=== PATIENT | male | born 1990 | race Two or more races ===

== ENCOUNTER 2018-10-11 07:57 | Emergency (ER) | payer BC, OTHER ==
[~2018-10-11 07:57] MED LIST: AZIT-9 PO; CHOL378P6 PO; DIC10 PO; HYDR-2946 PO; HYDR-3250 GT; IBUP-1618 PO; KET10 PO; NO RTN MEDS; PER PO
--- NOTE | 2018-10-11 08:03 | ER Report ---
History and Physical Time Seen By MD: 08:03 HPI/ROS CHIEF COMPLAINT: Stomach pain HISTORY OF PRESENT ILLNESS: Patient is a 28-year-old male who is status post a cholecystectomy 2011 and has since that time been having episodic epigastric abdominal pain. Currently the patient does not have any pain she denies nausea vomiting or diarrhea at this time. But states that at 6 AM he woke with crampy abdominal pain in the upper part of the abdomen that was severe in nature. Symptoms spontaneously resolved prior to arrival to the emergency department this morning. Patient states that this problem has been present since his gallbladder is been taken out he does follow with Dr. Hart. His operating surgeon has since moved away from the area so he has not followed up with him. He denies any relation to meals but states pain is worse when he does not eat. He denies fevers or chills denies chest pain or shortness of breath. REVIEW OF SYSTEMS: Constitutional: No fever, no chills. Eyes: No discharge. ENT: No sore throat. Cardiovascular: No chest pain, no palpitations. Respiratory: No cough, no shortness of breath. Gastrointestinal: Epigastric abdominal pain, no nausea or vomiting. Genitourinary: No hematuria. Musculoskeletal: No back pain. Skin: No rashes. Neurological: No headache. Allergies: Coded Allergies: No Known Drug Allergies (Verified , 11/24/15) Home Meds Active Scripts Dicyclomine Hcl (DICYCLOMINE HCL) 20 Mg Tablet, 20 MG PO QID for ab pain, #20 TAB 0 Refills Prov:DONG PINEDO MD 10/11/18 Reported Medications Azithromycin 250 Mg Tab (AZITHROMYCIN 250 MG TAB) 250 Mg Tablet 10/11/18 Amitriptyline Hcl (AMITRIPTYLINE HCL) 10 Mg Tablet, 3-4XD 10/11/18 Discontinued Reported Medications Cholestyramine (With Sugar) (CHOLESTYRAMINE POWDER) 378 Gm Powder, 378 GM PO QDAY 11/24/15 Past Medical/Surgical History Past medical history for Valentin's palsy, history of cholecystectomy in 2011. Hx Smoking: No Smoking Status: Former Smoker Exposure to Second Hand Smoke?: No Hx Substance Use Disorder: No Hx Alcohol Use: Yes (RARE) Constitutional Vital Sign - Last 24 Hours 3/12/19 3/12/19 3/12/19 3/12/19 07:57 08:02 08:04 08:12 Temp 98.5 Pulse ??? 109 108 Resp 16 B/P (MAP) 154/102 154/102 (119) Pulse Ox 91 94 O2 Delivery Room Air 10/11/18 10/11/18 10/11/18 10/11/18 08:27 08:30 08:42 08:57 Pulse 104 106 ??? B/P (MAP) 129/82 (98) Pulse Ox 92 94 10/11/18 10/11/18 10/11/18 10/11/18 09:00 09:11 09:12 09:27 Pulse 102 91 B/P (MAP) 134/103 (113) 138/91 (107) Pulse Ox 88 92 10/11/18 10/11/18 10/11/18 10/11/18 09:30 09:42 09:47 10:00 Pulse 90 87 B/P (MAP) 124/78 (93) 126/87 (100) Pulse Ox 91 90 10/11/18 10/11/18 10/11/18 10/11/18 10:02 10:17 10:32 10:47 Pulse 90 93 ? Pulse Ox 87 90 94 10/11/18 10/11/18 10/11/18 10/11/18 11:00 11:02 11:17 11:30 Pulse ? B/P (MAP) ???/??? (1665) ???/??? (1665) 10/11/18 10/11/18 10/11/18 10/11/18 11:35 11:50 12:00 12:05 Pulse ? B/P (MAP) ???/??? (1665) 10/11/18 10/11/18 10/11/18 10/11/18 12:17 12:20 12:35 12:50 Pulse 87 86 86 B/P (MAP) 123/70 (87) Pulse Ox 90 89 91 10/11/18 10/11/18 13:05 13:20 Pulse 86 83 Pulse Ox 89 91 Physical Exam General/Constitutional: Patient is awake, alert, nontoxic and in no acute respiratory distress. Head: Normocephalic and atraumatic. Eyes: Conjunctival clear, Sclera are clear and anicteric. Ears:External canals are clear. Tympanic membranes are clear with normal landmarks and light reflex. Nares: No rhinorrhea or bleeding. Turbinates are pink and moist. Oropharyngeal: Mucous membranes are moist. Neck: Supple, no adenopathy. Cardiovascular: Heart is regular rate and rhythm without audible murmurs, rubs or gallops. Pulmonary: Lungs are clear to auscultation bilaterally. There are no wheezes, rales, or rhonchi. Chest rise is symmetrical Abdomen: Soft, nontender, no guarding or peritoneal signs. Extremities: No gross deformities, No peripheral cyanosis. Able to move all 4 extremities. Neuro: Alert and oriented X3, Skin: No rashes, skin is warm dry and well perfused. Medical Decision Making Data Points Result Diagram: 10/11/18 0812 10/11/18 0812 Laboratory Hematology Test 10/11/18 08:12 Red Blood Count 5.76 M/uL (4.00-5.60) Mean Corpuscular Volume 85.2 fL (80.0-96.0) Mean Corpuscular Hemoglobin 29.3 pg (26.0-33.0) Mean Corpuscular Hemoglobin Concent 34.3 g/dL (32.0-36.0) Red Cell Distribution Width 13.0 % (11.5-14.5) Mean Platelet Volume 9.6 fL (7.2-11.1) Neutrophils (%) (Auto) 76.0 % (39.4-72.5) Lymphocytes (%) (Auto) 13.4 % (17.6-49.6) Monocytes (%) (Auto) 8.9 % (4.1-12.4) Eosinophils (%) (Auto) 1.0 % (0.4-6.7) Basophils (%) (Auto) 0.7 % (0.3-1.4) Nucleated RBC Relative Count (auto) 0.0 /100WBC Neutrophils # (Auto) 9.8 K/uL (2.0-7.4) Lymphocytes # (Auto) 1.7 K/uL (1.3-3.6) Monocytes # (Auto) 1.1 K/uL (0.3-1.0) Eosinophils # (Auto) 0.1 K/uL (0.0-0.5) Basophils # (Auto) 0.1 K/uL (0.0-0.1) Nucleated RBC Absolute Count (auto) 0.00 K/uL Sodium Level 141 mmol/L (137-145) Potassium Level 4.0 mmol/L (3.5-5.0) Chloride Level 108 mmol/L (98-107) Carbon Dioxide Level 23 mmol/L (22-30) Blood Urea Nitrogen 16 mg/dl (9-21) Creatinine 1.20 mg/dl (0.66-1.25) Glomerular Filtration Rate Calc > 60.0 Random Glucose 118 mg/dl (75-110) Calcium Level 9.2 mg/dl (8.4-10.2) Total Bilirubin 1.8 mg/dl (0.2-1.3) Aspartate Amino Transf (AST/SGOT) 111 U/L (0-35) Alanine Aminotransferase (ALT/SGPT) 67 U/L (0-56) Alkaline Phosphatase 94 U/L (0-126) Total Protein 8.3 g/dl (6.3-8.2) Albumin 4.4 g/dl (3.5-5.0) Lipase 352 U/L (23-300) Helicobacter pylori IgG Antibody Negative (NEGATIVE) Chemistry Test 10/11/18 08:12 White Blood Count 12.8 k/uL (4.5-11.0) Red Blood Count 5.76 M/uL (4.00-5.60) Hemoglobin 16.9 g/dL (14.0-18.0) Hematocrit 49.1 % (42.0-52.0) Mean Corpuscular Volume 85.2 fL (80.0-96.0) Mean Corpuscular Hemoglobin 29.3 pg (26.0-33.0) Mean Corpuscular Hemoglobin Concent 34.3 g/dL (32.0-36.0) Red Cell Distribution Width 13.0 % (11.5-14.5) Platelet Count 219 K/uL (150-450) Mean Platelet Volume 9.6 fL (7.2-11.1) Neutrophils (%) (Auto) 76.0 % (39.4-72.5) Lymphocytes (%) (Auto) 13.4 % (17.6-49.6) Monocytes (%) (Auto) 8.9 % (4.1-12.4) Eosinophils (%) (Auto) 1.0 % (0.4-6.7) Basophils (%) (Auto) 0.7 % (0.3-1.4) Nucleated RBC Relative Count (auto) 0.0 /100WBC Neutrophils # (Auto) 9.8 K/uL (2.0-7.4) Lymphocytes # (Auto) 1.7 K/uL (1.3-3.6) Monocytes # (Auto) 1.1 K/uL (0.3-1.0) Eosinophils # (Auto) 0.1 K/uL (0.0-0.5) Basophils # (Auto) 0.1 K/uL (0.0-0.1) Nucleated RBC Absolute Count (auto) 0.00 K/uL Glomerular Filtration Rate Calc > 60.0 Calcium Level 9.2 mg/dl (8.4-10.2) Total Bilirubin 1.8 mg/dl (0.2-1.3) Aspartate Amino Transf (AST/SGOT) 111 U/L (0-35) Alanine Aminotransferase (ALT/SGPT) 67 U/L (0-56) Alkaline Phosphatase 94 U/L (0-126) Total Protein 8.3 g/dl (6.3-8.2) Albumin 4.4 g/dl (3.5-5.0) Lipase 352 U/L (23-300) Helicobacter pylori IgG Antibody Negative (NEGATIVE) EKG/Imaging Imaging PATIENT NAME: Robin Ramirez : 1990 MR: [id number] V: [id number] EXAM DATE: ORDERING PHYSICIAN: DONG PINEDO TECHNOLOGIST: Location: [facility] [place] Patient: Robin Ramirez : 1990 Visit/Account:[id number] Date of Sevice: 10/11/2018 CT ABDOMEN PELVIS W/ CON HISTORY:epigastric pain TECHNIQUE: CT abdomen and pelvis with intravenous contrast. Contiguous axial images of the abdomen and pelvis was performed from the lung bases to the symphysis pubis. One of the following dose optimization techniques was utilized in the performance of this exam: Automated exposure control; adjustment of the mA and/or kV according to the patient's size; or use of an iterative reconstruction technique. Specific details can be referenced in the facility's radiology CT exam operational policy. CONTRAST: 75 cc of Isovue-370 COMPARISON: None. FINDINGS: Visualized lung bases: Negative. Hepatobiliary: Gallbladder is absent. Bile ducts are decompressed Spleen: Negative. Adrenals: Negative. Kidneys/: Negative. Pancreas: Negative. GI: The appendix is normal. No evidence for bowel obstruction or focal inflammation. Stomach is filled with food and fluid. Vessels/spaces/nodes: Negative. Bones/soft tissues: Negative. IMPRESSION: 1. No acute pathology in the abdomen or pelvis. The appendix is visualized and is normal. Report Dictated By: Ganga Méndez MD at 10/11/2018 9:08 AM Report E-Signed By: Ganga Méndez MD at 10/11/2018 9:13 AM WSN:[id number] ED Course/Re-evaluation ED Course Plan at this time will be to perform abdominal workup including CBC CMP and lipase. We'll screen for H. pylori. We'll also perform a contrast enhanced CT scan of the abdomen and pelvis. Currently patient is symptom-free. 10/11/2018 9:33:25 am EKG skin normal however patient does have slight e levation of bilirubin and transaminases. We'll proceed with MRCP at this time. Decision to Disposition Date: Oct 11, 2018 Decision to Disposition Time: 13:52 Depart Departure Latest Vital Signs Vital Signs Date Time Temp Pulse Resp B/P (MAP) Pulse Ox O2 Delivery O2 Flow Rate FiO2 10/11/18 13:20 83 91 10/11/18 12:17 123/70 (87) 10/11/18 08:02 98.5 16 Room Air Impression: Primary Impression: Biliary colic Additional Impression: Transaminitis Condition: Improved Disposition: HOME OR SELF-CARE Referrals: SHARITA CIFUENTES MD Make a follow up appointment for further work up of you abdominal pain and elevated liver enzymes New Scripts Dicyclomine Hcl (DICYCLOMINE HCL) 20 Mg Tablet 20 MG PO QID for ab pain, #20 TAB 0 Refills Prov: DONG PINEDO MD 10/11/18 Departure Forms: ER Transition Record, Medications Reconciliation, Off Work/School Form, School or Work Release?: Work Number of days to be released: 1 Patient Portal Information Patient Instructions: Biliary Colic (ED) Problem Qualifiers DONG PINEDO MD Oct 11, 2018 08:03
[2018-10-11] MEDS ORDERED: AZIT-18 (08:16)
[2018-10-11] MEDS ORDERED: AMIT-104 (08:16)
[2018-10-11 08:44] LABS: PLATELET COUNT, AUTOMATED 219 K/uL (150-450)
[2018-10-11] MEDS ORDERED: IOPAMIDOL 76% 100 ML INFUS BTL 100 ML ONE (08:49)
--- NOTE | 2018-10-11 09:17 | RADIOLOGY IMAGING REPORT ---
FACILITY: [facility] - [place] PATIENT NAME: Robni Ramirez : 1990 MR: [id number] V: [id number] EXAM DATE: ORDERING PHYSICIAN: DONG PINEDO TECHNOLOGIST: Location: [facility] Patient: Robin Ramirez : 1990 Visit/Account:[id number] Date of Sevice: 10/11/2018 CT ABDOMEN PELVIS W/ CON HISTORY:epigastric pain TECHNIQUE: CT abdomen and pelvis with intravenous contrast. Contiguous axial images of the abdomen and pelvis was performed from the lung bases to the symphysis pubis. One of the following dose optimization techniques was utilized in the performance of this exam: Autom ated exposure control; adjustment of the mA and/or kV according to the patient's size; or use of an i terative reconstruction technique. Specific details can be referenced in the facility's radiology C T exam operational policy. CONTRAST: 75 cc of Isovue-370 COMPARISON: None. FINDINGS: Visualized lung bases: Negative. Hepatobiliary: Gallbladder is absent. Bile ducts are decompressed Spleen: Negative. Adrenals: Negative. Kidneys/: Negative. Pancreas: Negative. GI: The appendix is normal. No evidence for bowel obstruction or focal inflammation. Stomach is fill ed with food and fluid. Vessels/spaces/nodes: Negative. Bones/soft tissues: Negative. IMPRESSION: 1. No acute pathology in the abdomen or pelvis. The appendix is visualized and is normal. Report Dictated By: Ganga Méndez MD at 10/11/2018 9:08 AM Report E-Signed By: Ganga Méndez MD at 10/11/2018 9:13 AM WSN:[id number]
[2018-10-11 12:17] VITALS: BP 123/70
--- NOTE | 2018-10-11 13:38 | RADIOLOGY IMAGING REPORT ---
FACILITY: [facility] - [place] PATIENT NAME: Robin Ramirez : 1990 MR: [id number] V: [id number] EXAM DATE: ORDERING PHYSICIAN: DONG PINEDO TECHNOLOGIST: Location: [facility] - [place] Patient: Robin Ramirez : 1990 Visit/Account:[id number] Date of Sevice: 10/11/2018 MR ABDOMEN MRCP W/O CONTRAST HISTORY: elevated lft/ lipase TECHNIQUE: Multiplanar multisequence magnetic resonance imaging of the abdomen without intravenous c ontrast including magnetic resonance cholangiopancreatography (MRCP). CONTRAST: None. COMPARISON: CT abdomen pelvis performed today FINDINGS: Visualized lung bases: Grossly unremarkable. Liver: Negative. Gallbladder: Surgically removed Bile ducts: Common bile duct is minimally dilated at 5.5 mm which may simply be related to prior cho lecystectomy changes Spleen: Negative. Adrenal glands: Negative. Pancreas: Negative. Kidneys: Negative. Vessels/spaces/nodes: No bulky adenopathy or ascites. Visualized GI: Grossly unremarkable. Bones/soft tissues: Unremarkable. IMPRESSION: Common bile duct is minimally dilated at 5.5 mm which may simply be related to prior cholecystectomy changes. Otherwise unremarkable MRCP Report Dictated By: Sara Fang MD at 10/11/2018 1:23 PM Report E-Signed By: Sara Fang MD at 10/11/2018 1:34 PM WSN:[id number]
[2018-10-11] MEDS ORDERED: DICY20TA70 PO (13:53)
== END 2018-10-11 13:06 | disposition home or self-care (01) ==
LOC: ER 08:13
DX: K80.50 Calculus of bile duct without cholangitis or cholecystitis without obstruction (principal); R74.0 Nonspecific elevation of levels of transaminase and lactic acid dehydrogenase [LDH]
CPT/HCPCS: 74177; 74181; 83690; 85025; 86677; 99284; Q9967; 82040; 82247; 82310; 82374; 82435; 82565; 82947; 84075; 84132; 84155; 84295; 84450; 84460; 84520

== ENCOUNTER → 2018-11-23 | Outpatient (CLI) | payer BC ==
[~2018-11-23] MED LIST changes: +AMIT-104; +AZIT-18; +DICY20TA70 PO; +PANT40TA65 PO
== END ==
LOC: LAB 15:22
PROVIDERS: ATTEND Surgery
DX: K80.50 Calculus of bile duct without cholangitis or cholecystitis without obstruction (principal); R10.9 Unspecified abdominal pain
CPT/HCPCS: 36415; 82040; 82247; 82310; 82374; 82435; 82565; 82947; 83690; 84075; 84132; 84155; 84295; 84450; 84460; 84520

== ENCOUNTER 2018-12-14 10:09 | Emergency (ER) | payer BC ==
[2018-12-14] MEDS ORDERED: ELUX75TA PO (10:23)
--- NOTE | 2018-12-14 10:40 | ER Report ---
History and Physical Time Seen By MD: 10:30 Hx. of Stated Complaint: SUDDEN ONSET OF UPPER ABDOMINAL PAIN. TOOK DICYCLOMINE AND REPORTS IMPROVEMENT. DENIES N/V/D HPI/ROS CHIEF COMPLAINT: Epigastric pain HISTORY OF PRESENT ILLNESS: Per 8-year-old male status post Tana gallbladder removal comes emergency Department today with complaint of epigastric discomfort is been having this pain intermittently comes and goes seen by general surgery put on a proton pump inhibitor pain is been persistent worse today than it's been the last couple days no right upper quadrant no midepigastric pain patient's had a negative CT scan I spoke general surgery was requesting a repeat CT scan Baseline labs at this abnormalities to consult if not pertinent an outpatient EGD patient describes the pain is dull aching and burning sensation in his epigastrium without radiation no loosening relieving or alleviating factors no additional complaints noted REVIEW OF SYSTEMS: Respiratory: No cough, no dyspnea. Cardiovascular: No chest pain, no palpitations. Gastrointestinal: No vomiting, has abdominal pain. Musculoskeletal: No back pain. Remainder of the 14 system rev: Yes Allergies: Coded Allergies: No Known Drug Allergies (Verified , 11/24/15) Home Meds Active Scripts Pantoprazole Sodium (PANTOPRAZOLE SODIUM) 40 Mg Tablet.dr, 40 MG PO QDAY for 30 Days, #30 TAB.SR 2 Refills Prov:NELL CASTANO 11/23/18 Dicyclomine Hcl (DICYCLOMINE HCL) 20 Mg Tablet, 20 MG PO QID for ab pain, #20 TAB 0 Refills Prov:DONG PINEDO MD 10/11/18 Reported Medications Eluxadoline (Viberzi) 75 Mg Tablet, 1 TAB PO DAILY 12/14/18 Discontinued Reported Medications Azithromycin 250 Mg Tab (AZITHROMYCIN 250 MG TAB) 250 Mg Tablet 10/11/18 Amitriptyline Hcl (AMITRIPTYLINE HCL) 10 Mg Tablet, 3-4XD 10/11/18 Reviewed Nurses Notes: Yes Old Medical Records Reviewed: Yes Hx Smoking: No Smoking Status: Former Smoker Exposure to Second Hand Smoke?: No Hx Substance Use Disorder: No Hx Alcohol Use: Yes (RARE) Constitutional Vital Sign - Last 24 Hours 12/14/18 10:19 Temp 98.7 Pulse 88 Resp 18 B/P (MAP) 137/91 Pulse Ox 94 O2 Delivery Room Air Physical Exam General Appearance: The patient is alert, has no immediate need for airway protection and no current signs of toxicity. [ ] Eyes: Pupils equal and round no injection. Respiratory: Chest is non tender, lungs are clear to auscultation. Cardiac: regular rate and rhythm [ ] Gastrointestinal: Abdomen mild to moderate tenderness with deep palpation in the epigastric area otherwise unremarkable exam normal bowel sounds Musculoskeletal: Neck: Neck is supple and non tender. Extremities have full range of motion and are non tender. Skin: No rashes or lesions. [ ] DIFFERENTIAL DIAGNOSIS: After history and physical exam differential diagnosis was considered for gastritis and GERD pancreatitis Medical Decision Making Data Points Result Diagram: 12/14/18 1033 12/14/18 1033 Laboratory Hematology Test 12/14/18 10:33 Red Blood Count 5.65 M/uL (4.00-5.60) Mean Corpuscular Volume 84.0 fL (80.0-96.0) Mean Corpuscular Hemoglobin 29.5 pg (26.0-33.0) Mean Corpuscular Hemoglobin Concent 35.1 g/dL (32.0-36.0) Red Cell Distribution Width 12.9 % (11.5-14.5) Mean Platelet Volume 9.4 fL (7.2-11.1) Neutrophils (%) (Auto) 70.9 % (39.4-72.5) Lymphocytes (%) (Auto) 19.0 % (17.6-49.6) Monocytes (%) (Auto) 7.1 % (4.1-12.4) Eosinophils (%) (Auto) 2.0 % (0.4-6.7) Basophils (%) (Auto) 1.0 % (0.3-1.4) Nucleated RBC Relative Count (auto) 0.2 /100WBC Neutrophils # (Auto) 5.8 K/uL (2.0-7.4) Lymphocytes # (Auto) 1.6 K/uL (1.3-3.6) Monocytes # (Auto) 0.6 K/uL (0.3-1.0) Eosinophils # (Auto) 0.2 K/uL (0.0-0.5) Basophils # (Auto) 0.1 K/uL (0.0-0.1) Nucleated RBC Absolute Count (auto) 0.02 K/uL Sodium Level 138 mmol/L (137-145) Potassium Level 3.2 mmol/L (3.5-5.0) Chloride Level 106 mmol/L (98-107) Carbon Dioxide Level 21 mmol/L (22-30) Blood Urea Nitrogen 17 mg/dl (9-21) Creatinine 1.10 mg/dl (0.66-1.25) Glomerular Filtration Rate Calc > 60.0 Random Glucose 149 mg/dl (75-110) Calcium Level 9.0 mg/dl (8.4-10.2) Total Bilirubin 1.4 mg/dl (0.2-1.3) Aspartate Amino Transf (AST/SGOT) 86 U/L (0-35) Alanine Aminotransferase (ALT/SGPT) 50 U/L (0-56) Alkaline Phosphatase 85 U/L (0-126) Total Protein 8.2 g/dl (6.3-8.2) Albumin 4.1 g/dl (3.5-5.0) Lipase 248 U/L (23-300) Chemistry Test 12/14/18 10:33 White Blood Count 8.2 k/uL (4.5-11.0) Red Blood Count 5.65 M/uL (4.00-5.60) Hemoglobin 16.7 g/dL (14.0-18.0) Hematocrit 47.5 % (42.0-52.0) Mean Corpuscular Volume 84.0 fL (80.0-96.0) Mean Corpuscular Hemoglobin 29.5 pg (26.0-33.0) Mean Corpuscular Hemoglobin Concent 35.1 g/dL (32.0-36.0) Red Cell Distribution Width 12.9 % (11.5-14.5) Platelet Count 211 K/uL (150-450) Mean Platelet Volume 9.4 fL (7.2-11.1) Neutrophils (%) (Auto) 70.9 % (39.4-72.5) Lymphocytes (%) (Auto) 19.0 % (17.6-49.6) Monocytes (%) (Auto) 7.1 % (4.1-12.4) Eosinophils (%) (Auto) 2.0 % (0.4-6.7) Basophils (%) (Auto) 1.0 % (0.3-1.4) Nucleated RBC Relative Count (auto) 0.2 /100WBC Neutrophils # (Auto) 5.8 K/uL (2.0-7.4) Lymphocytes # (Auto) 1.6 K/uL (1.3-3.6) Monocytes # (Auto) 0.6 K/uL (0.3-1.0) Eosinophils # (Auto) 0.2 K/uL (0.0-0.5) Basophils # (Auto) 0.1 K/uL (0.0-0.1) Nucleated RBC Absolute Count (auto) 0.02 K/uL Glomerular Filtration Rate Calc > 60.0 Calcium Level 9.0 mg/dl (8.4-10.2) Total Bilirubin 1.4 mg/dl (0.2-1.3) Aspartate Amino Transf (AST/SGOT) 86 U/L (0-35) Alanine Aminotransferase (ALT/SGPT) 50 U/L (0-56) Alkaline Phosphatase 85 U/L (0-126) Total Protein 8.2 g/dl (6.3-8.2) Albumin 4.1 g/dl (3.5-5.0) Lipase 248 U/L (23-300) ED Course/Re-evaluation ED Course ED clinical course medical decision making a 28-year-old male comes in again with epigastric pain is currently on a proton pump inhibitor followed by general surgery recommending outpatient EGD to be performed surgeon also recommended a CAT scan which was performed showed no acute abnormalities LFTs are actually a bit improving his lipase is improved I will go ahead and discharge him with a diagnosis abdominal pain follow-up with Gen. surgery for an outpatient EGD Decision to Disposition Date: December 14, 2018 Decision to Disposition Time: 11:57 Depart Departure Latest Vital Signs Vital Signs Date Time Temp Pulse Resp B/P (MAP) Pulse Ox O2 Delivery O2 Flow Rate FiO2 12/14/18 10:19 98.7 88 18 137/91 94 Room Air Impression: Primary Impression: Abdominal pain Condition: Improved Disposition: HOME OR SELF-CARE Referrals: NELL CASTANO 5 Days Patient Instructions: Abdominal Pain (ED) MARISOL LUCIA MD December 14, 2018 10:40
[2018-12-14 10:44] LABS: PLATELET COUNT, AUTOMATED 211 K/uL (150-450)
[2018-12-14] MEDS ORDERED: IOPAMIDOL 76% 150 ML INFUS BTL 150 ML ONE (10:46)
[2018-12-14 11:00] VITALS: BP 128/87
--- NOTE | 2018-12-14 11:51 | RADIOLOGY IMAGING REPORT ---
FACILITY: [facility] - [place] PATIENT NAME: Robin Ramirez : 1990 MR: [id number] V: [id number] EXAM DATE: ORDERING PHYSICIAN: MARISOL LUCIA TECHNOLOGIST: Location: [facility] - [place] Patient: Robin Ramirez : 1990 Visit/Account:[id number] Date of Sevice: 12/14/2018 CT ABDOMEN PELVIS W/ CON HISTORY: Abdominal pain TECHNIQUE: CT abdomen and pelvis with intravenous contrast. Contiguous axial images of the abdomen and pelvis was performed from the lung bases to the symphysis pubis. One of the following dose optimization techniques was utilized in the performance of this exam: Autom ated exposure control; adjustment of the mA and/or kV according to the patient's size; or use of an i terative reconstruction technique. Specific details can be referenced in the facility's radiology C T exam operational policy. CONTRAST: 75 cc of Isovue-370 COMPARISON: CT scan 10/11/2018 FINDINGS: Visualized lung bases: Negative. Hepatobiliary: There is fatty infiltration of the liver. Gallbladder is absent. Bile ducts are decom pressed. Spleen: Negative. Adrenals: Negative. Kidneys/: Negative. Pancreas: Negative. GI: Stomach is filled with food. Appendix is normal. No bowel obstruction or focal inflammation. Vessels/spaces/nodes: Negative. Bones/soft tissues: Negative. IMPRESSION: 1. No acute pathology in the abdomen or pelvis. Report Dictated By: Ganga Méndez MD at 12/14/2018 11:41 AM Report E-Signed By: Ganga Méndez MD at 12/14/2018 11:46 AM [id number]
== END 2018-12-14 12:09 | disposition home or self-care (01) ==
LOC: ER 10:32
DX: R10.13 Epigastric pain (principal)
CPT/HCPCS: 74177; 83690; 85025; 99284; Q9967; 82040; 82247; 82310; 82374; 82435; 82565; 82947; 84075; 84132; 84155; 84295; 84450; 84460; 84520

== ENCOUNTER 2018-12-30 00:10 | Day surgery (SDC) | payer BC ==
[~2018-12-30] VITALS: Ht 170.2 cm; Wt 78.0 kg
[~2018-12-30 00:10] MED LIST changes: +ELUX75TA PO
[2018-12-30] MEDS ORDERED: PROPOFOL EMUL(*) 10MG/ML 20 ML 40 ML ONE (06:31)
[2018-12-30 09:30] VITALS: BP 137/88
[2018-12-30] MEDS ORDERED: NORMOSOL R SOLN(*) 1000 ML BAG 1,000 ML IV PRN (10:45)
[2018-12-30] MEDS ORDERED: LIDOCAINE/SOD BICARB 8.4% SYR ID ONE (10:45)
[2018-12-30 11:40] VITALS: BP 109/62
--- NOTE | 2018-12-30 11:42 | Short(Outpt) Discharge Summary ---
Discharge Summary Reason for Hosp/Final Diag: (1) Upper abdominal pain Hospital Course & Plan: pt presented for egd. he tolerated the procedure well. he will be discharged home when criteria met. Departure Discharge to: Home Discharge Instructions Home Meds Active Scripts Pantoprazole Sodium (PANTOPRAZOLE SODIUM) 40 Mg Tablet.dr, 40 MG PO QDAY for 30 Days, #30 TAB.SR 2 Refills Prov:NELL CASTANO 11/23/18 Dicyclomine Hcl (DICYCLOMINE HCL) 20 Mg Tablet, 20 MG PO QID for ab pain, #20 TAB 0 Refills Prov:DONG PINEDO MD 10/11/18 Reported Medications Eluxadoline (Viberzi) 75 Mg Tablet, 1 TAB PO DAILY 12/14/18 Diet: Regular Activity: As Tolerated Special Instructions: we will call you in 10 days with biopsy results. NELL CASTANO December 30, 2018 11:42
[2018-12-30 12:00] VITALS: BP 102/70
[2018-12-30] MEDS ORDERED: PANT40TA65 PO (12:22)
[2018-12-30 12:30] VITALS: BP 107/78
[2018-12-30 12:35] VITALS: BP 116/84
[2018-12-30 12:37] VITALS: BP 120/92
[2019-01-05] MEDS ORDERED: DICY20TA70 PO (14:12)
== END 2018-12-30 12:55 | disposition home or self-care (01) ==
LOC: OR 00:10
PROVIDERS: ATTEND Surgery
DX: K29.70 Gastritis, unspecified, without bleeding (principal); K29.50 Unspecified chronic gastritis without bleeding; Z79.899 Other long term (current) drug therapy
CPT/HCPCS: 43239; 87077; 88305; 88313; 88342; J2704

== ENCOUNTER → 2019-02-06 | Outpatient (CLI) | payer BC | LOC: LAB 13:20 | PROVIDERS: ATTEND Surgery | DX: R10.10 Upper abdominal pain, unspecified (principal) | CPT/HCPCS: 84110; 84120 ==